=== PATIENT | female | born 1950 | race Hispanic/Latino ===

== ENCOUNTER 2019-03-15 07:58 | Day surgery (SDC) | payer MEDICARE ==
[2019-03-13 12:34] LABS: BASOPHILS % (AUTO) 0.5 % (0.0-5.0); EOSINOPHILS % (AUTO) 2.6 % (0.0-8.0); HEMATOCRIT 33.7 % (36-48); LYMPHOCYTES % (AUTO) 34.5 % (21.0-51.0); MEAN CORPUSCULAR HEMOGLOBIN 27.8 pg (27.0-33.0); MEAN CORPUSCULAR VOLUME 86.9 fL (79-99); MONOCYTES % (AUTO) 8.6 % (3.0-13.0); NEUTROPHILS % (AUTO) 53.5 % (40.0-77.0); PLATELET COUNT (AUTO) 76 K/uL (130-400); RED BLOOD CELL COUNT(AUTO) 3.88 MIL/uL (4.00-5.50); RED CELL DISTRIBUTION WIDTH 13.8 % (11.0-15.5); WHITE BLOOD COUNT (AUTO) 3.8 K/uL (4.8-10.8)
[2019-03-13 12:43] LABS: INR 0.99 (0.85-1.15); PARTIAL THROMBOPLASTIN TIME 24.4 SEC (26.3-35.5); PROTHROMBIN TIME 10.4 SEC (9.6-11.6)
[2019-03-13 12:58] LABS: CREATININE 1.4 mg/dL (0.5-1.5); POTASSIUM 4.2 mmol/L (3.5-5.1)
[2019-03-13 13:27] VITALS: BP 177/59
[2019-03-13 13:47] LABS: APPEARANCE,URINE Clear (CLEAR); BILIRUBIN,URINE Negative (NEGATIVE); COLOR,URINE Yellow (YELLOW); GLUCOSE, URINE (UA) Negative (NEGATIVE); KETONES,URINE Negative (NEGATIVE); LEUKOCYTE ESTERASE ,URINE Negative (NEGATIVE); NITRATE,URINE Negative (NEGATIVE); OCCULT BLOOD,URINE Negative (NEGATIVE); PH,URINE 5.5 (5.0-8.0); PROTEIN,URINE POS 2+ mg/dL (NEGATIVE); UROBILINOGEN,URINE 0.2 mg/dL (0.2-1.0)
[2019-03-13 14:00] LABS: BACTERIA,URINE Rare /HPF (None Seen); RBC,URINE 0-1 /HPF (0-1); SQUAMOUS EPITHELIAL CELL,UR Rare /HPF (0-2); WBC,URINE 0-1 /HPF (0-1)
--- NOTE | 2019-03-14 14:06 | NUR ---
LAB ORDERS RECEIVED FOR PT TO ENCOURAGE PO FLUIDS THIS PM DUE TO ABORMAL CREA 1.4, INSTRUCTED PATIENT / HECTOR URIARTEYKLIEA TO ENCOURAGE FLUIDS THIS PM AND TO KEEP NPO AFTER MN. THEY VERBALIZED UNDERSTANDING. NO ORDERS GIVEN FOR LOW H&H
[2019-03-15] VITALS (10 sets, daily range): BP systolic 122–165; BP diastolic 43–70
[~2019-03-15] VITALS: Ht 157.5 cm; Wt 89.0 kg
[~2019-03-15 07:58] MED LIST: ANAS1TAB7 PO; BACL10TA PO; CETI10TA57 PO; CHOL20004 PO; DONE5TAB33 PO; DULA1.5P SQ; ESOM40CA PO; FENO48TA16 PO; FERR325T22 PO; FOLIC ACID PO; INSLAN SQ; INSU200I SQ; ISOS20TA7 PO; LISI40TA4 PO; METO-391 PO; NITR0.4T50 SL; SERT50TA12 PO; SODIUM CHLORIDE 0.9% 1000ML 1,000 ML IV ONE; SODIUM CHLORIDE 0.9% 500ML 500 ML IV SCH; VITAMIN B12 PO
[2019-03-15] MEDS ORDERED: ISOS60TA4 PO (08:35)
[2019-03-15] MEDS ORDERED: NITROGLYCERIN 5 MG/ML 10 ML VIAL IV ONE (10:56)
[2019-03-15] MEDS ORDERED: BIVALIRUDIN 250 MG/VIAL IV ONE (10:57)
[2019-03-15] MEDS ORDERED: IOHEXOL-350 50ML VIAL IV ONE ×2 (10:57→11:59)
[2019-03-15] MEDS ORDERED: IOHEXOL 350 MG/ML 100ML INFUS..BTL IV ONE (10:57)
[2019-03-15] MEDS ORDERED: LIDOCAINE HCL 2% 20ML ONE (10:57)
[2019-03-15] MEDS ORDERED: MIDAZOLAM HCL 1 MG/ML 2ML VIAL ONE (10:58)
[2019-03-15] MEDS ORDERED: LABETALOL HCL 5 MG/ML 20ML VIAL IV ONE (11:50)
--- NOTE | 2019-03-15 15:53 | NUR ---
MEDS MEDICATIONS OBTAINED FROM PT'S CAREGIVER/DAUGHTER IN LAW JUVE OWUSU VIA TELEPHONE, INSTRUCTED TO BRING MEDS IN AM, NOTHING TO EAT OR DRINK AFTER MIDNIGHT, TAKE BP MEDS, CLOPIDOGREL IN AM WITH A SIP OF WATER, NO INSULIN DAY OF PROCEDURE, TOA 0800. VERBALIZED UNDERSTANDING.
--- NOTE | 2019-03-15 16:00 | NUR ---
REPORT RECEIVED REPORT FROM BO PARRA. PT DOING WELL. SITE TO RIGHT GROIN SOFT TO TOUCH. NO BLEEDING, OOZING NOTED TO SITE. INSTRUCTED GIVEN BY BO PARRA TO FAMILY MEMBERS. NO QUESTIONS AT THIS TIME.
== END 2019-03-15 16:40 | disposition home or self-care (01) ==
LOC: DAH 07:58
PROVIDERS: ATTEND Internal Medicine Cardiovascular Disease
DX: R94.39 Abnormal result of other cardiovascular function study (principal); I25.119 Atherosclerotic heart disease of native coronary artery with unspecified angina pectoris; D69.6 Thrombocytopenia, unspecified; I12.9 Hypertensive chronic kidney disease with stage 1 through stage 4 chronic kidney disease, or unspecified chronic kidney disease; E11.22 Type 2 diabetes mellitus with diabetic chronic kidney disease; N18.3 Chronic kidney disease, stage 3 (moderate); E11.51 Type 2 diabetes mellitus with diabetic peripheral angiopathy without gangrene; D61.818 Other pancytopenia; Z79.4 Long term (current) use of insulin; Z79.899 Other long term (current) drug therapy; E78.5 Hyperlipidemia, unspecified; Z85.3 Personal history of malignant neoplasm of breast; Z90.12 Acquired absence of left breast and nipple; Z96.651 Presence of right artificial knee joint; Z98.890 Other specified postprocedural states
CPT/HCPCS: 36415; 71045; 80048; 81001; 82948 ×2; 85025; 85610; 85730; 93005; 93458; A4215; A4216; A4221; A4222; A4223 ×3; A4606; A4663; C1760; C1894; J1644; J2250; J3490 ×3; J7030; Q9965; Q9967 ×2; 99156; 99157; J0583